=== PATIENT | female | born 1985 | race Hispanic/Latino ===

== ENCOUNTER 2017-04-21 09:15 | Emergency (ER) | payer OTHER, MEDICAID ==
[~2017-04-21] VITALS: Ht 154.9 cm; Wt 62.6 kg
[2017-04-21] MEDS ORDERED: EXCEDRIN MIGRA1 EAC2 PO (09:33)
== END 2017-04-21 09:57 | disposition home or self-care (01) ==
LOC: ED 09:15
DX: S43.402A Unspecified sprain of left shoulder joint, initial encounter (principal); Z90.710 Acquired absence of both cervix and uterus; Z88.8 Allergy status to other drugs, medicaments and biological substances; W17.89XA Other fall from one level to another, initial encounter; Y92.69 Other specified industrial and construction area as the place of occurrence of the external cause; Y99.0 Civilian activity done for income or pay
CPT/HCPCS: 99282